=== PATIENT | female | born 1965 | race Caucasian/White ===

== ENCOUNTER 2021-01-27 16:16 | Observation (INO) ==
[2021-01-27] MEDS ORDERED: 0.9 % Sodium Chloride 1,000 ML IVC ONE (16:37)
[2021-01-27] MEDS ORDERED: Pantoprazole 40 MG VIAL IVP ONE (17:15)
[2021-01-27] MEDS ORDERED: Isovue-370 500 ML BOTTLE IVP ONE (17:15)
[2021-01-27 18:03] LABS: Basophils % 0.7 %; Eosinophils # 0.2 K/mcL (0.0-0.6); Eosinophils % 3.8 %; Hematocrit 22.1 % (35.3-44.9); Immature Granulocytes % 0.7 % (0-4); Lymphocytes # 0.6 K/mcL (0.6-4.6); Lymphocytes % 14.8 %; Mean Corpuscular HGB Conc 24.4 g/dL (31.6-35.5); Mean Corpuscular Hemoglobin 17.9 pg (28.0-33.3); Mean Corpuscular Volume 73.2 fL (83.0-100.0); Mean Platelet Volume 10.8 fL (9.4-12.4); Monocytes # 0.4 K/mcL (0.0-1.3); Monocytes % 9.9 %; Platelet Count 183 K/mcL (140-400); Red Blood Count 3.02 M/mcL (3.82-4.97); Red Cell Distribution Width 19.4 % (11.5-14.5); Segmented Neutrophils % 70.1 %; White Blood Count 4.3 K/mcL (4.3-11.1)
[2021-01-27 18:10] LABS: INR 1.1; Prothrombin Time 12.4 Seconds (9.4-12.1)
[2021-01-27 18:12] LABS: Activated Partial Thrombo Time 22.4 Seconds (26.0-36.0)
[2021-01-27 18:16] LABS: Alanine Aminotransferase 10 Units/L (7-52); Albumin 3.2 g/dL (3.5-5.7); Albumin/Globulin Ratio 1.4 (1.1-2.2); Alkaline Phosphatase 109 Units/L (34-104); Aspartate Amino Transferase 10 Units/L (13-39); BUN/Creatinine Ratio 10 (6-26); Bilirubin,Total 0.2 mg/dL (0.3-1.0); Blood Urea Nitrogen 8 mg/dL (6-20); Calcium 7.8 mg/dL (8.6-10.3); Carbon Dioxide 26 mEq/L (23-29); Chloride 108 mEq/L (98-107); Globulin 2.3 g/dL (2.4-3.5); Glucose 140 mg/dL (70-105); Lipase 20 Units/L (11-82); Osmolality,Calculated 287 (280-300); Potassium 3.4 mEq/L (3.5-5.1); Sodium 138 mEq/L (136-145); Total Protein 5.5 g/dL (6.4-8.9); eGFR For African Americans > 60 (> 60); eGFR For Non-African Americans > 60 (> 60)
[2021-01-27 18:17] LABS: Troponin I 0.03 ng/mL (< 0.04)
[2021-01-27 18:19] LABS: Hemoglobin 5.4 g/dL (11.5-15.4)
[2021-01-27 18:22] LABS: Anisocytosis 1+ (Not Present); Hypochromasia Present (Not Present); Platelet Estimate Normal (Normal)
[2021-01-27] MEDS ORDERED: Potassium Chloride Elixir 20 MEQ/15 ML UDC PO ONE (20:05)
[2021-01-27] MEDS ORDERED: Calcium Gluconate 1gm/50mL 1 GM/50 ML BAG IVPB ONE (20:05)
[2021-01-27] MEDS ORDERED: *HR* Dextrose 50 % in Water (Vial) 50 ML VIAL IVP PRN (20:08)
[2021-01-27] MEDS ORDERED: D5% in Water 1,000 ML IVC PRN (20:08)
[2021-01-27] MEDS ORDERED: Dextrose Gel 15 GM/37.5 ML TUBE PO PRN ×2 (20:08)
[2021-01-27] MEDS ORDERED: SODIUM CHLORIDE/NAHCO3/KCL/PEG 4,000 ML SOLN.RECON PO ONE (22:35)
[2021-01-28 02:40] LABS: Basophils # 0.1 K/mcL (0.0-0.2); Basophils % 0.8 %; Eosinophils # 0.1 K/mcL (0.0-0.6); Eosinophils % 1.3 %; Hematocrit 37.1 % (35.3-44.9); Hemoglobin 10.5 g/dL (11.5-15.4); Immature Granulocytes % 1.5 % (0-4); Immature Platelets 9.4 % (1.1-6.1); Lymphocytes # 0.8 K/mcL (0.6-4.6); Lymphocytes % 10.5 %; Mean Corpuscular HGB Conc 28.3 g/dL (31.6-35.5); Mean Corpuscular Hemoglobin 22.2 pg (28.0-33.3); Mean Corpuscular Volume 78.4 fL (83.0-100.0); Mean Platelet Volume 10.6 fL (9.4-12.4); Monocytes # 0.6 K/mcL (0.0-1.3); Monocytes % 7.5 %; Neutrophils # 6.2 K/mcL (1.6-8.9); Nucleated Red Blood Cells 0.3 /100 WBC (0); Platelet Count 254 K/mcL (140-400); Red Blood Count 4.73 M/mcL (3.82-4.97); Red Cell Distribution Width 20.9 % (11.5-14.5); Segmented Neutrophils % 78.4 %; White Blood Count 7.9 K/mcL (4.3-11.1)
[2021-01-28 02:55] LABS: BUN/Creatinine Ratio 7 (6-26); Blood Urea Nitrogen 6 mg/dL (6-20); Calcium 8.4 mg/dL (8.6-10.3); Carbon Dioxide 22 mEq/L (23-29); Chloride 104 mEq/L (98-107); Glucose 154 mg/dL (70-105); Osmolality,Calculated 287 (280-300); Potassium 3.6 mEq/L (3.5-5.1); Sodium 138 mEq/L (136-145); eGFR For African Americans > 60 (> 60); eGFR For Non-African Americans > 60 (> 60)
[2021-01-28 03:15] LABS: Anisocytosis 1+ (Not Present); Hypochromasia Present (Not Present); Platelet Estimate Normal (Normal)
[2021-01-28] MEDS: Insulin LISPRO 300 UNITS/3 ML VIAL SUBQ SCH ×4 (04:03→16:48)
[2021-01-28 04:51] LABS: Estimated Average Glucose 111 mg/dl; Hemoglobin A1C 5.5 %
[2021-01-28] MEDS: Pantoprazole 40 MG VIAL IVP SCH ×2 (06:15→17:04)
[2021-01-28] MEDS: Calcium Gluconate 1gm/50mL 1 GM/50 ML BAG IVPB SCH ×2 (08:46→09:51)
[2021-01-28 09:32] LABS: Influenza A PCR Negative (Negative); Influenza B PCR Negative (Negative); Resp. Syncytial Virus PCR Negative (Negative)
[2021-01-28 09:48] LABS: SARS-CoV-2 by PCR (In House) Negative (Negative)
[2021-01-28] MEDS ORDERED: Lidocaine -MPF 2% 2 ML VIAL ONE (13:43)
[2021-01-28] MEDS ORDERED: *HR* Metoprolol 5 MG/5 ML VIAL IVP ONE (13:59)
[2021-01-28] MEDS: Melatonin 3 MG TABLET PO SCH (20:17)
[2021-01-28] MEDS: tiZANidine 4 MG TABLET PO SCH (20:17)
[2021-01-28] MEDS: Sucralfate 1 GM TABLET PO SCH (20:17)
[2021-01-28] MEDS: RisperiDAL 3 MG TABLET PO SCH (20:17)
[2021-01-29] MEDS: Insulin LISPRO 300 UNITS/3 ML VIAL SUBQ SCH ×4 (00:30→16:22)
[2021-01-29] MEDS: Pantoprazole 40 MG VIAL IVP SCH (05:14)
[2021-01-29 06:17] LABS: Red Cell Distribution Width 21.2 % (11.5-14.5)
[2021-01-29 06:19] LABS: Hematocrit 32.4 % (35.3-44.9); Hemoglobin 9.4 g/dL (11.5-15.4); Immature Platelets 7.9 % (1.1-6.1); Mean Corpuscular Hemoglobin 22.4 pg (28.0-33.3); Mean Corpuscular Volume 77.3 fL (83.0-100.0); Mean Platelet Volume 10.6 fL (9.4-12.4); Red Blood Count 4.19 M/mcL (3.82-4.97); White Blood Count 6.1 K/mcL (4.3-11.1)
[2021-01-29 06:53] LABS: % Iron Saturation 6 % (15-50); BUN/Creatinine Ratio 7 (6-26); Blood Urea Nitrogen 5 mg/dL (6-20); Calcium 8.5 mg/dL (8.6-10.3); Carbon Dioxide 22 mEq/L (23-29); Chloride 103 mEq/L (98-107); Glucose 106 mg/dL (70-105); Iron 31 mcg/dL (50-170); Magnesium 1.7 mg/dL (1.6-2.6); Osmolality,Calculated 278 (280-300); Potassium 3.5 mEq/L (3.5-5.1); Sodium 135 mEq/L (136-145); Transferrin 349 mg/dL (203-362); eGFR For African Americans > 60 (> 60); eGFR For Non-African Americans > 60 (> 60)
[2021-01-29 06:56] LABS: Ferritin 15 ng/mL (10-120)
[2021-01-29 07:02] LABS: Folate 19.2 ng/mL (3.0-16.0)
[2021-01-29] MEDS: tiZANidine 4 MG TABLET PO SCH ×2 (07:51→21:41)
[2021-01-29] MEDS: Sucralfate 1 GM TABLET PO SCH ×3 (07:52→21:42)
[2021-01-29] MEDS ORDERED: Iron Sucrose Complex 400 MG in 0.9 % Sodium Chloride 250 ML IVPB ONE (07:53)
[2021-01-29] MEDS ORDERED: 0.9 % Sodium Chloride 1,000 ML IVC ONE (11:11)
[2021-01-29] MEDS ORDERED: 0.9 % Sodium Chloride 500 ML ONE (11:15)
[2021-01-29] MEDS: Melatonin 3 MG TABLET PO SCH (21:41)
[2021-01-29] MEDS: RisperiDAL 3 MG TABLET PO SCH (21:41)
[2021-01-30 04:19] LABS: Hematocrit 35.9 % (35.3-44.9); Hemoglobin 10.2 g/dL (11.5-15.4)
[2021-01-30 07:44] VITALS: BP 143/82
[2021-01-30] MEDS: Insulin LISPRO 300 UNITS/3 ML VIAL SUBQ SCH ×2 (07:54→12:51)
[2021-01-30] MEDS: tiZANidine 4 MG TABLET PO SCH (07:58)
[2021-01-30] MEDS: Sucralfate 1 GM TABLET PO SCH (07:58)
== END 2021-01-30 14:00 | disposition home or self-care (01) ==
LOC: EMEROOARM 16:16 → 3ANU 16:16 → SUATTDRO 19:43 → 3ANU 20:30
PROVIDERS: ADMIT Internal Medicine; ATTEND Family Medicine
PROC: ENDOEBX (2021-01-28 14:30)